=== PATIENT | male | born 1975 | race Caucasian/White ===

== ENCOUNTER 2019-01-19 13:08 | Inpatient (IN) | payer MEDICARE, OTHER ==
[2019-01-19] MEDS: SODIUM CHLORIDE 0.9% 1L BAG IV* (13:33)
[2019-01-19] MEDS: CEFEPIME 2GM/50 ML (PMX) 50 ML IVPB (13:33)
[2019-01-19 13:44] LABS: ADD MAN DIFF? NO; BASOPHILS % 0.2 % (0.0-2.0); HEMATOCRIT 32.6 % (42.0-52.0); HEMOGLOBIN 10.5 g/dl (14.0-18.0); LYMPHOCYTES # 2.3 10^3/ul (0.8-2.9); LYMPHOCYTES % 15.3 % (15.0-51.0); MEAN CORPUSCULAR HEMOGLOBIN 29.1 pg (29.0-33.0); MEAN CORPUSCULAR HGB CONC 32.2 g/dl (32.0-37.0); MEAN CORPUSCULAR VOLUME 90.3 fl (82.0-101.0); MEAN PLATELET VOLUME 8.8 fl (7.4-10.4); MONOCYTE # 0.4 10^3/ul (0.3-0.9); NEUTROPHIL # 12.1 10^3/ul (1.6-7.5); NEUTROPHILS % 80.8 % (39.0-77.0); PLATELET COUNT 402 10^3/UL (140-415); RED BLOOD COUNT 3.61 10^6/ul (4.70-6.10); RED CELL DISTRIBUTION WIDTH 19.1 % (11.5-14.5)
[2019-01-19 13:44] LABS: WHITE BLOOD COUNT 14.9 10^3/ul (4.8-10.8)
[2019-01-19] MEDS: VANCOMYCIN 1 GM (PMX) 250 ML IVPB (13:56)
[2019-01-19 13:59] LABS: ALANINE AMINOTRANSFERASE 12 IU/L (13-69); ALBUMIN 2.9 g/dl (3.3-4.9); ALBUMIN/GLOBULIN RATIO 0.65; ALKALINE PHOSPHATASE 82 IU/L (42-121); AMYLASE 44 U/L (11-123); ANION GAP 7 (5-13); ASPARTATE AMINO TRANSFERASE 20 IU/L (15-46); BILIRUBIN,INDIRECT 0.8 mg/dl (0-1.1); BILIRUBIN,TOTAL 0.8 mg/dl (0.2-1.3); BLOOD UREA NITROGEN 18 mg/dl (7-20); CALCIUM 8.2 mg/dl (8.4-10.2); CARBON DIOXIDE 22 mmol/L (21-31); CHLORIDE 109 mmol/L (97-110); CREATININE 0.52 mg/dl (0.61-1.24); Estimated GFR > 60 mL/min (>60); GLUCOSE 100 mg/dl (70-220); POTASSIUM 3.9 mmol/L (3.5-5.1); SODIUM 138 mmol/L (135-144); TOTAL PROTEIN 7.3 g/dl (6.1-8.1)
[2019-01-19 14:00] LABS: INR 1.27; LIPASE < 10 U/L (23-300); PARTIAL THROMBOPLASTIN TIME 28.3 Sec (23.0-35.0); PT RATIO 1.3
[2019-01-19 14:09] LABS: TROPONIN-I < 0.012 ng/ml (0.000-0.120)
[2019-01-19 14:22] LABS: ADD UMIC YES; UR AMORPHOUS CRYSTAL FEW /HPF (NONE SEEN); UR ASCORBIC ACID 40 mg/dL (NEGATIVE); UR BACTERIA FEW /HPF (NONE SEEN); UR BILIRUBIN (Dip) NEGATIVE (NEGATIVE); UR BLOOD (Dip) NEGATIVE (NEGATIVE); UR CLARITY CLOUDY (CLEAR); UR COLOR AMBER (YELLOW); UR GLUCOSE (Dip) NEGATIVE (NEGATIVE); UR KETONES (Dip) NEGATIVE (NEGATIVE); UR LEUKOCYTE ESTERASE (Dip) 3+ Leu/ul (NEGATIVE); UR MUCUS FEW /HPF (NONE SEEN); UR NITRITE (Dip) NEGATIVE (NEGATIVE); UR RBC 66 /HPF (0-5); UR SPECIFIC GRAVITY (Dip) 1.027 (1.003-1.030); UR SQUAMOUS EPITHELIAL CELL FEW /HPF (FEW); UR TOTAL PROTEIN (Dip) 2+ mg/dl (NEGATIVE); UR UROBILINOGEN (Dip) NEGATIVE (NEGATIVE); UR WBC > 182 /HPF (0-5)
[2019-01-19] MEDS ORDERED: ACETAMINOPHEN 325 MG TAB PO ×2 (14:30)
[2019-01-19] MEDS ORDERED: ACETAMINOPHEN/CODEINE #3 TAB PO (14:30)
[2019-01-19] MEDS ORDERED: NACL 0.9% 3 ML SYG IV (14:30)
[2019-01-19] MEDS ORDERED: ONDANSETRON 4 MG INJ IV ×2 (14:30)
[2019-01-19] MEDS ORDERED: ACETAMINOPHEN 650 MG SUPP PR (15:00)
[2019-01-19 15:47] LABS: LACTIC ACID 1.8 mmol/L (0.5-2.0)
[2019-01-19 17:50] LABS: LACTIC ACID 1.4 mmol/L (0.5-2.0)
[2019-01-19] MEDS: CEFEPIME 1GM/50 ML (PMX) 50 ML IV (20:35)
[2019-01-19] MEDS: SENNA TAB PO ×2 (20:35→20:59)
[2019-01-19] MEDS: DEXTROSE 5%-0.45% NACL 1,000 ML IV (20:35)
[2019-01-19] MEDS: DOCUSATE SODIUM 100 MG CAP PO ×2 (20:36→20:59)
[2019-01-19] MEDS: QUETIAPINE 25 MG TAB PO ×2 (20:36→20:59)
[2019-01-19] MEDS: MIDODRINE 5 MG TAB PO ×2 (20:36→20:59)
[2019-01-19] MEDS: BENZTROPINE 1 MG TAB PO (20:59)
[2019-01-19] MEDS: ALBUTEROL 0.083% (NEB) 2.5 MG/3 ML AMP NEB (21:06)
[2019-01-19] MEDS: LORAZEPAM 2 MG INJ IV (21:16)
[2019-01-19] MEDS: OCTREOTIDE 50 MCG INJ SC (22:07)
[2019-01-20] MEDS: ALBUTEROL/IPRATROPIUM (NEB) 3 ML AMP NEB (00:23)
[2019-01-20 01:00] LABS: AADO2 Arterial 214.1 mmHg (7.0-24.0); Allen Test ACCEPTAB; Arterial Base Excess -3.4 mmol/L (-3.0-3); Arterial Blood Gas Oxygen Sat 95.8 mmHG (95.0-98.0); Arterial COHb 0.2 % (0.0-3.0); Arterial Fraction of Oxyhgb 95.4 % (93.0-99.0); Arterial MetHb 0.2 % (0.0-1.5); Arterial pCO2 40.9 mmhg (35-45); MODE MASK - SIMPLE; Site Right Radial
[2019-01-20] MEDS: LORAZEPAM 2 MG INJ IV ×3 (03:08→20:53)
[2019-01-20 05:49] LABS: ADD MAN DIFF? NO
[2019-01-20 05:50] LABS: WHITE BLOOD COUNT 13.8 10^3/ul (4.8-10.8)
[2019-01-20 05:50] LABS: BASOPHILS % 0.3 % (0.0-2.0); EOSINOPHILS # 0.1 10^3/ul (0.0-0.5); EOSINOPHILS % 0.4 % (0.0-7.0); HEMATOCRIT 31.3 % (42.0-52.0); HEMOGLOBIN 10.1 g/dl (14.0-18.0); LYMPHOCYTES # 1.9 10^3/ul (0.8-2.9); MEAN CORPUSCULAR HEMOGLOBIN 29.4 pg (29.0-33.0); MEAN CORPUSCULAR HGB CONC 32.3 g/dl (32.0-37.0); MEAN CORPUSCULAR VOLUME 91.3 fl (82.0-101.0); MEAN PLATELET VOLUME 8.6 fl (7.4-10.4); MONOCYTE # 0.5 10^3/ul (0.3-0.9); MONOCYTES % 3.6 % (0.0-11.0); NEUTROPHIL # 11.2 10^3/ul (1.6-7.5); NEUTROPHILS % 80.8 % (39.0-77.0); PLATELET COUNT 379 10^3/UL (140-415); RED BLOOD COUNT 3.43 10^6/ul (4.70-6.10); RED CELL DISTRIBUTION WIDTH 18.8 % (11.5-14.5)
[2019-01-20 06:26] LABS: ANION GAP 7 (5-13); BLOOD UREA NITROGEN 15 mg/dl (7-20); CALCIUM 8.6 mg/dl (8.4-10.2); CARBON DIOXIDE 23 mmol/L (21-31); CHLORIDE 108 mmol/L (97-110); CREATININE 0.47 mg/dl (0.61-1.24); Estimated GFR > 60 mL/min (>60); GLUCOSE 70 mg/dl (70-220); MAGNESIUM 1.7 mg/dl (1.7-2.5); POTASSIUM 3.3 mmol/L (3.5-5.1); SODIUM 138 mmol/L (135-144)
[2019-01-20] MEDS: PANTOPRAZOLE 40 MG INJ IV (06:29)
[2019-01-20] MEDS ORDERED: PANTOPRAZOLE (EC) 40 MG TAB PO (07:00)
[2019-01-20 07:42] LABS: AADO2 Arterial 227.5 mmHg (7.0-24.0); Arterial Base Excess -1.9 mmol/L (-3.0-3); Arterial Blood Gas Oxygen Sat 96.3 mmHG (95.0-98.0); Arterial COHb 0.3 % (0.0-3.0); Arterial Fraction of Oxyhgb 95.6 % (93.0-99.0); Arterial HCO3 21.8 mmol/L (22.0-26.0); Arterial MetHb 0.4 % (0.0-1.5); Arterial pCO2 33.5 mmhg (35-45); MODE MASK - SIMPLE; Site Right Brachial
[2019-01-20] MEDS: ALBUTEROL 0.083% (NEB) 2.5 MG/3 ML AMP NEB (07:45)
[2019-01-20] MEDS: CEFEPIME 1GM/50 ML (PMX) 50 ML IV ×2 (08:21→20:52)
[2019-01-20] MEDS: ENOXAPARIN 40 MG/0.4 ML SYG SC (08:32)
[2019-01-20] MEDS: BENZTROPINE 1 MG TAB PO ×2 (08:33→20:54)
[2019-01-20] MEDS: ASCORBIC ACID 500 MG TAB PO (08:34)
[2019-01-20] MEDS: QUETIAPINE 25 MG TAB PO ×2 (08:34→20:56)
[2019-01-20] MEDS: predniSONE 2.5 MG TAB PO (08:34)
[2019-01-20] MEDS: LACTOBACILLUS RHAMNOSUS CAP PO (08:34)
[2019-01-20] MEDS: MIDODRINE 5 MG TAB PO ×3 (08:34→20:54)
[2019-01-20] MEDS: DOCUSATE SODIUM 100 MG CAP PO ×2 (08:34→20:54)
[2019-01-20] MEDS: FOLIC ACID 1 MG TAB PO (08:34)
[2019-01-20] MEDS: MULTIVITAMINS THERAPEUTIC TAB PO (08:34)
[2019-01-20] MEDS: SENNA TAB PO ×2 (08:34→20:55)
[2019-01-20] MEDS: ALBUTEROL/IPRATROPIUM (NEB) 3 ML AMP HHN ×2 (08:53→12:56)
[2019-01-20] MEDS ORDERED: NON-FORMULARY/PATIENT OWN MED (Lactobacillus Acidophilus* (Lactinex*) 1 TAB) PO (09:00)
[2019-01-20] MEDS ORDERED: NON-FORMULARY/PATIENT OWN MED (Multivitamin with Minerals (Multivitamins with Minerals) 1 PO (09:00)
[2019-01-20] MEDS ORDERED: morphine 2 MG INJ IV (09:00)
[2019-01-20] MEDS ORDERED: KETOROLAC 15 MG INJ IV (09:00)
[2019-01-20] MEDS: POTASSIUM CHLORIDE 100 ML IVPB ×2 (10:36→13:37)
[2019-01-20] MEDS: METHYLPREDNISOLONE 40 MG INJ IV ×2 (10:36→21:29)
[2019-01-20] MEDS: PETROLATUM 5 GM OINT TOP (10:36)
[2019-01-20] MEDS ORDERED: VITAMIN A & D 5 GM OINT PACKET TOP (11:00)
[2019-01-20] MEDS: BALSAM PERU/CASTOR OIL 60 GM TUBE TOP (13:37)
[2019-01-20] MEDS ORDERED: PIPER-TAZO 3.375 GM IV (PMX) 100 ML IVPB (15:00)
[2019-01-20] MEDS ORDERED: VANCOMYCIN IV PER PHARMACY XX (15:00)
[2019-01-20] MEDS: COLLAGENASE 5 GM (UD JAR) TOP (17:06)
[2019-01-20] MEDS: VANCOMYCIN 1 GM 250 ML IVPB (17:07)
[2019-01-20] MEDS: LEVALBUTEROL (NEB) 0.63 MG/3 ML AMP HHN (19:48)
[2019-01-20] MEDS: OCTREOTIDE 50 MCG INJ SC (23:03)
[2019-01-21] MEDS: VANCOMYCIN 750 MG (PMX) 250 ML IVPB (05:00)
[2019-01-21] MEDS: PANTOPRAZOLE 40 MG INJ IV (05:43)
[2019-01-21] MEDS: METHYLPREDNISOLONE 40 MG INJ IV ×3 (05:43→22:04)
[2019-01-21 06:07] LABS: ADD MAN DIFF? NO
[2019-01-21 06:11] LABS: WHITE BLOOD COUNT 9.1 10^3/ul (4.8-10.8)
[2019-01-21 06:11] LABS: BASOPHILS % 0.1 % (0.0-2.0); HEMATOCRIT 32.8 % (42.0-52.0); HEMOGLOBIN 10.8 g/dl (14.0-18.0); LYMPHOCYTES # 1.2 10^3/ul (0.8-2.9); LYMPHOCYTES % 13.6 % (15.0-51.0); MEAN CORPUSCULAR HEMOGLOBIN 29.4 pg (29.0-33.0); MEAN CORPUSCULAR HGB CONC 32.9 g/dl (32.0-37.0); MEAN CORPUSCULAR VOLUME 89.4 fl (82.0-101.0); MEAN PLATELET VOLUME 9.2 fl (7.4-10.4); MONOCYTE # 0.1 10^3/ul (0.3-0.9); MONOCYTES % 1.3 % (0.0-11.0); NEUTROPHIL # 7.6 10^3/ul (1.6-7.5); NEUTROPHILS % 83.8 % (39.0-77.0); PLATELET COUNT 446 10^3/UL (140-415); RED BLOOD COUNT 3.67 10^6/ul (4.70-6.10)
[2019-01-21 06:38] LABS: ALBUMIN 2.8 g/dl (3.3-4.9); ANION GAP 8 (5-13); BLOOD UREA NITROGEN 25 mg/dl (7-20); CALCIUM 9.5 mg/dl (8.4-10.2); CARBON DIOXIDE 25 mmol/L (21-31); CHLORIDE 108 mmol/L (97-110); CREATININE 0.48 mg/dl (0.61-1.24); GLUCOSE 158 mg/dl (70-220); MAGNESIUM 1.9 mg/dl (1.7-2.5); PHOSPHORUS 4.2 mg/dl (2.5-4.9); POTASSIUM 4.4 mmol/L (3.5-5.1); SODIUM 141 mmol/L (135-144)
[2019-01-21] MEDS: LEVALBUTEROL (NEB) 0.63 MG/3 ML AMP HHN ×3 (07:35→19:25)
[2019-01-21] MEDS: DOCUSATE SODIUM 100 MG CAP PO ×2 (08:23→21:00)
[2019-01-21] MEDS: FOLIC ACID 1 MG TAB PO (08:23)
[2019-01-21] MEDS: BENZTROPINE 1 MG TAB PO ×2 (08:23→21:00)
[2019-01-21] MEDS: QUETIAPINE 25 MG TAB PO ×2 (08:23→21:00)
[2019-01-21] MEDS: ASCORBIC ACID 500 MG TAB PO (08:23)
[2019-01-21] MEDS: SENNA TAB PO ×2 (08:23→21:00)
[2019-01-21] MEDS: LACTOBACILLUS RHAMNOSUS CAP PO (08:23)
[2019-01-21] MEDS: MIDODRINE 5 MG TAB PO ×3 (08:23→21:00)
[2019-01-21] MEDS: MULTIVITAMINS THERAPEUTIC TAB PO (08:23)
[2019-01-21] MEDS: BALSAM PERU/CASTOR OIL 60 GM TUBE TOP (08:58)
[2019-01-21] MEDS: CEFEPIME 1GM/50 ML (PMX) 50 ML IV ×2 (08:58→22:04)
[2019-01-21] MEDS: COLLAGENASE 5 GM (UD JAR) TOP (08:58)
[2019-01-21] MEDS: ENOXAPARIN 40 MG/0.4 ML SYG SC (09:32)
[2019-01-21] MEDS: DEXTROSE 5%-0.45% NACL 1,000 ML IV (11:57)
[2019-01-21] MEDS: OCTREOTIDE 50 MCG INJ SC (22:04)
[2019-01-22] MEDS: DEXTROSE 5%-0.45% NACL 1,000 ML IV (00:05)
[2019-01-22 05:58] LABS: ADD MAN DIFF? NO
[2019-01-22 06:05] LABS: WHITE BLOOD COUNT 5.8 10^3/ul (4.8-10.8)
[2019-01-22 06:05] LABS: BASOPHILS % 0.2 % (0.0-2.0); HEMATOCRIT 36.6 % (42.0-52.0); HEMOGLOBIN 11.5 g/dl (14.0-18.0); LYMPHOCYTES # 1.2 10^3/ul (0.8-2.9); LYMPHOCYTES % 20.3 % (15.0-51.0); MEAN CORPUSCULAR HEMOGLOBIN 28.9 pg (29.0-33.0); MEAN CORPUSCULAR HGB CONC 31.4 g/dl (32.0-37.0); MEAN PLATELET VOLUME 9.1 fl (7.4-10.4); MONOCYTE # 0.2 10^3/ul (0.3-0.9); NEUTROPHIL # 4.3 10^3/ul (1.6-7.5); NEUTROPHILS % 74.8 % (39.0-77.0); PLATELET COUNT 438 10^3/UL (140-415); RED BLOOD COUNT 3.98 10^6/ul (4.70-6.10); RED CELL DISTRIBUTION WIDTH 17.8 % (11.5-14.5)
[2019-01-22 06:44] LABS: ALBUMIN 2.9 g/dl (3.3-4.9); ANION GAP 4 (5-13); BLOOD UREA NITROGEN 28 mg/dl (7-20); CALCIUM 9.4 mg/dl (8.4-10.2); CARBON DIOXIDE 29 mmol/L (21-31); CHLORIDE 106 mmol/L (97-110); CREATININE 0.57 mg/dl (0.61-1.24); GLUCOSE 162 mg/dl (70-220); MAGNESIUM 2.1 mg/dl (1.7-2.5); PHOSPHORUS 3.5 mg/dl (2.5-4.9); POTASSIUM 4.9 mmol/L (3.5-5.1); SODIUM 139 mmol/L (135-144)
[2019-01-22] MEDS: LEVALBUTEROL (NEB) 0.63 MG/3 ML AMP HHN ×3 (08:36→21:20)
[2019-01-22] MEDS: ALBUTEROL/IPRATROPIUM (NEB) 3 ML AMP NEB (08:37)
[2019-01-22] MEDS: ASCORBIC ACID 500 MG TAB PO (09:00)
[2019-01-22] MEDS: MULTIVITAMINS THERAPEUTIC TAB PO (09:00)
[2019-01-22] MEDS: MIDODRINE 5 MG TAB PO ×3 (09:00→20:02)
[2019-01-22] MEDS: COLLAGENASE 5 GM (UD JAR) TOP (09:00)
[2019-01-22] MEDS: QUETIAPINE 25 MG TAB PO ×2 (09:00→20:02)
[2019-01-22] MEDS: LACTOBACILLUS RHAMNOSUS CAP PO (09:00)
[2019-01-22] MEDS: FOLIC ACID 1 MG TAB PO (09:00)
[2019-01-22] MEDS: SENNA TAB PO ×2 (09:00→20:02)
[2019-01-22] MEDS: BENZTROPINE 1 MG TAB PO ×2 (09:00→20:01)
[2019-01-22] MEDS: DOCUSATE SODIUM 100 MG CAP PO ×2 (09:00→20:02)
[2019-01-22] MEDS: BALSAM PERU/CASTOR OIL 60 GM TUBE TOP ×2 (09:19→20:05)
[2019-01-22] MEDS: ENOXAPARIN 40 MG/0.4 ML SYG SC (10:22)
[2019-01-22] MEDS: PANTOPRAZOLE 40 MG INJ IV (11:01)
[2019-01-22] MEDS: METHYLPREDNISOLONE 40 MG INJ IV ×3 (11:01→21:46)
[2019-01-22] MEDS: CEFEPIME 1GM/50 ML (PMX) 50 ML IV ×2 (11:01→20:06)
[2019-01-22] MEDS: OCTREOTIDE 50 MCG INJ SC (20:06)
[2019-01-23] MEDS: DEXTROSE 5%-0.45% NACL 1,000 ML IV ×2 (04:00→11:04)
[2019-01-23] MEDS: PANTOPRAZOLE 40 MG INJ IV (05:18)
[2019-01-23] MEDS: METHYLPREDNISOLONE 40 MG INJ IV ×2 (05:18→20:24)
[2019-01-23 05:31] LABS: ADD MAN DIFF? NO
[2019-01-23 05:33] LABS: BASOPHILS % 0.2 % (0.0-2.0); HEMATOCRIT 34.9 % (42.0-52.0); HEMOGLOBIN 11.3 g/dl (14.0-18.0); LYMPHOCYTES # 1.2 10^3/ul (0.8-2.9); LYMPHOCYTES % 23.5 % (15.0-51.0); MEAN CORPUSCULAR HEMOGLOBIN 29.6 pg (29.0-33.0); MEAN CORPUSCULAR HGB CONC 32.4 g/dl (32.0-37.0); MEAN CORPUSCULAR VOLUME 91.4 fl (82.0-101.0); MEAN PLATELET VOLUME 9.5 fl (7.4-10.4); MONOCYTE # 0.3 10^3/ul (0.3-0.9); MONOCYTES % 5.6 % (0.0-11.0); NEUTROPHIL # 3.5 10^3/ul (1.6-7.5); NEUTROPHILS % 68.7 % (39.0-77.0); PLATELET COUNT 400 10^3/UL (140-415); RED BLOOD COUNT 3.82 10^6/ul (4.70-6.10); RED CELL DISTRIBUTION WIDTH 17.5 % (11.5-14.5)
[2019-01-23 06:20] LABS: ALBUMIN 2.6 g/dl (3.3-4.9); ANION GAP 5 (5-13); BLOOD UREA NITROGEN 27 mg/dl (7-20); CALCIUM 9.1 mg/dl (8.4-10.2); CARBON DIOXIDE 28 mmol/L (21-31); CHLORIDE 106 mmol/L (97-110); CREATININE 0.51 mg/dl (0.61-1.24); GLUCOSE 159 mg/dl (70-220); MAGNESIUM 2.1 mg/dl (1.7-2.5); PHOSPHORUS 3.3 mg/dl (2.5-4.9); POTASSIUM 4.2 mmol/L (3.5-5.1); SODIUM 139 mmol/L (135-144)
[2019-01-23] MEDS: LEVALBUTEROL (NEB) 0.63 MG/3 ML AMP HHN ×3 (07:53→20:39)
[2019-01-23] MEDS: CEFEPIME 1GM/50 ML (PMX) 50 ML IV ×2 (08:55→20:24)
[2019-01-23] MEDS: DOCUSATE SODIUM 100 MG CAP PO ×2 (08:56→20:25)
[2019-01-23] MEDS: LACTOBACILLUS RHAMNOSUS CAP PO (08:56)
[2019-01-23] MEDS: MIDODRINE 5 MG TAB PO ×3 (08:57→21:00)
[2019-01-23] MEDS: MULTIVITAMINS THERAPEUTIC TAB PO (08:57)
[2019-01-23] MEDS: FOLIC ACID 1 MG TAB PO (08:57)
[2019-01-23] MEDS: ASCORBIC ACID 500 MG TAB PO (08:57)
[2019-01-23] MEDS: SENNA TAB PO ×2 (08:57→20:25)
[2019-01-23] MEDS: QUETIAPINE 25 MG TAB PO ×2 (08:57→20:25)
[2019-01-23] MEDS: BENZTROPINE 1 MG TAB PO ×2 (09:00→20:25)
[2019-01-23] MEDS: ENOXAPARIN 40 MG/0.4 ML SYG SC (09:01)
[2019-01-23] MEDS ORDERED: VANCOMYCIN IV PER PHARMACY XX (11:00)
[2019-01-23] MEDS: BALSAM PERU/CASTOR OIL 60 GM TUBE TOP ×3 (11:06→20:26)
[2019-01-23] MEDS: COLLAGENASE 5 GM (UD JAR) TOP (11:06)
[2019-01-23] MEDS: VANCOMYCIN 1 GM 250 ML IVPB (13:41)
[2019-01-23] MEDS: OCTREOTIDE 50 MCG INJ SC (22:04)
[2019-01-24] MEDS: VANCOMYCIN 750 MG (PMX) 250 ML IVPB ×2 (00:35→12:47)
[2019-01-24] MEDS: PANTOPRAZOLE 40 MG INJ IV (05:07)
[2019-01-24 06:27] LABS: ADD MAN DIFF? NO
[2019-01-24 06:34] LABS: WHITE BLOOD COUNT 6.5 10^3/ul (4.8-10.8)
[2019-01-24 06:34] LABS: BASOPHILS % 0.3 % (0.0-2.0); HEMATOCRIT 34.1 % (42.0-52.0); HEMOGLOBIN 11.1 g/dl (14.0-18.0); LYMPHOCYTES # 1.5 10^3/ul (0.8-2.9); LYMPHOCYTES % 23.6 % (15.0-51.0); MEAN CORPUSCULAR HEMOGLOBIN 29.5 pg (29.0-33.0); MEAN CORPUSCULAR HGB CONC 32.6 g/dl (32.0-37.0); MEAN CORPUSCULAR VOLUME 90.7 fl (82.0-101.0); MEAN PLATELET VOLUME 10.5 fl (7.4-10.4); MONOCYTE # 0.4 10^3/ul (0.3-0.9); MONOCYTES % 6.2 % (0.0-11.0); NEUTROPHIL # 4.4 10^3/ul (1.6-7.5); NEUTROPHILS % 67.4 % (39.0-77.0); PLATELET COUNT 352 10^3/UL (140-415); RED BLOOD COUNT 3.76 10^6/ul (4.70-6.10); RED CELL DISTRIBUTION WIDTH 17.2 % (11.5-14.5)
[2019-01-24 07:07] LABS: ANION GAP 5 (5-13); BLOOD UREA NITROGEN 23 mg/dl (7-20); CALCIUM 8.4 mg/dl (8.4-10.2); CARBON DIOXIDE 28 mmol/L (21-31); CHLORIDE 104 mmol/L (97-110); CREATININE 0.33 mg/dl (0.61-1.24); Estimated GFR > 60 mL/min (>60); GLUCOSE 126 mg/dl (70-220); MAGNESIUM 1.9 mg/dl (1.7-2.5); PHOSPHORUS 3.1 mg/dl (2.5-4.9); SODIUM 137 mmol/L (135-144)
[2019-01-24] MEDS: LEVALBUTEROL (NEB) 0.63 MG/3 ML AMP HHN ×3 (07:50→20:51)
[2019-01-24] MEDS: MULTIVITAMINS THERAPEUTIC TAB PO (09:00)
[2019-01-24] MEDS: FOLIC ACID 1 MG TAB PO (09:00)
[2019-01-24] MEDS: DOCUSATE SODIUM 100 MG CAP PO ×2 (09:00→21:00)
[2019-01-24] MEDS: QUETIAPINE 25 MG TAB PO ×2 (09:00→21:00)
[2019-01-24] MEDS: COLLAGENASE 5 GM (UD JAR) TOP (09:00)
[2019-01-24] MEDS: SENNA TAB PO ×2 (09:00→21:00)
[2019-01-24] MEDS: MIDODRINE 5 MG TAB PO ×3 (09:00→21:00)
[2019-01-24] MEDS: ASCORBIC ACID 500 MG TAB PO (09:00)
[2019-01-24] MEDS: LACTOBACILLUS RHAMNOSUS CAP PO (09:00)
[2019-01-24] MEDS: BENZTROPINE 1 MG TAB PO ×2 (09:00→21:00)
[2019-01-24] MEDS: METHYLPREDNISOLONE 40 MG INJ IV ×2 (09:53→21:39)
[2019-01-24] MEDS: CEFEPIME 1GM/50 ML (PMX) 50 ML IV ×2 (09:54→21:36)
[2019-01-24] MEDS: BALSAM PERU/CASTOR OIL 60 GM TUBE TOP ×3 (09:54→21:40)
[2019-01-24] MEDS: ENOXAPARIN 40 MG/0.4 ML SYG SC (10:00)
[2019-01-24] MEDS: DEXTROSE 5%-0.45% NACL 1,000 ML IV ×2 (14:49→20:00)
[2019-01-24] MEDS: OCTREOTIDE 50 MCG INJ SC (21:39)
[2019-01-25 01:30] LABS: VANCOMYCIN,TROUGH 8.4 ug/ml (10.0-20.0)
[2019-01-25] MEDS: VANCOMYCIN 1 GM (PMX) 250 ML IVPB ×2 (01:58→14:07)
[2019-01-25] MEDS: PANTOPRAZOLE 40 MG INJ IV (05:52)
[2019-01-25 05:59] LABS: ADD MAN DIFF? NO
[2019-01-25 06:08] LABS: WHITE BLOOD COUNT 7.4 10^3/ul (4.8-10.8)
[2019-01-25 06:08] LABS: BASOPHILS % 0.1 % (0.0-2.0); HEMATOCRIT 37.3 % (42.0-52.0); HEMOGLOBIN 12.2 g/dl (14.0-18.0); LYMPHOCYTES # 2.1 10^3/ul (0.8-2.9); LYMPHOCYTES % 28.9 % (15.0-51.0); MEAN CORPUSCULAR HGB CONC 32.7 g/dl (32.0-37.0); MEAN CORPUSCULAR VOLUME 88.8 fl (82.0-101.0); MEAN PLATELET VOLUME 9.6 fl (7.4-10.4); MONOCYTE # 0.5 10^3/ul (0.3-0.9); MONOCYTES % 7.2 % (0.0-11.0); NEUTROPHIL # 4.4 10^3/ul (1.6-7.5); NEUTROPHILS % 59.2 % (39.0-77.0); PLATELET COUNT 436 10^3/UL (140-415)
[2019-01-25 07:01] LABS: ANION GAP 3 (5-13); BLOOD UREA NITROGEN 13 mg/dl (7-20); CALCIUM 8.5 mg/dl (8.4-10.2); CARBON DIOXIDE 31 mmol/L (21-31); CHLORIDE 98 mmol/L (97-110); CREATININE 0.34 mg/dl (0.61-1.24); Estimated GFR > 60 mL/min (>60); GLUCOSE 110 mg/dl (70-220); MAGNESIUM 1.8 mg/dl (1.7-2.5); PHOSPHORUS 3.1 mg/dl (2.5-4.9); SODIUM 132 mmol/L (135-144)
[2019-01-25] MEDS: LEVALBUTEROL (NEB) 0.63 MG/3 ML AMP HHN ×3 (08:43→19:46)
[2019-01-25] MEDS: DOCUSATE SODIUM 100 MG CAP PO ×2 (09:00→20:14)
[2019-01-25] MEDS: SENNA TAB PO ×2 (09:00→20:14)
[2019-01-25] MEDS: MULTIVITAMINS THERAPEUTIC TAB PO (09:00)
[2019-01-25] MEDS: COLLAGENASE 5 GM (UD JAR) TOP (09:00)
[2019-01-25] MEDS: QUETIAPINE 25 MG TAB PO ×2 (09:00→20:14)
[2019-01-25] MEDS: BENZTROPINE 1 MG TAB PO ×2 (09:00→20:13)
[2019-01-25] MEDS: MIDODRINE 5 MG TAB PO ×3 (09:00→20:14)
[2019-01-25] MEDS: FOLIC ACID 1 MG TAB PO (09:00)
[2019-01-25] MEDS: ASCORBIC ACID 500 MG TAB PO (09:00)
[2019-01-25] MEDS: LACTOBACILLUS RHAMNOSUS CAP PO (09:00)
[2019-01-25] MEDS: CEFEPIME 1GM/50 ML (PMX) 50 ML IV ×2 (09:46→20:16)
[2019-01-25] MEDS: METHYLPREDNISOLONE 40 MG INJ IV (09:48)
[2019-01-25] MEDS: BALSAM PERU/CASTOR OIL 60 GM TUBE TOP ×3 (09:49→20:16)
[2019-01-25] MEDS: ENOXAPARIN 40 MG/0.4 ML SYG SC (09:58)
[2019-01-25 13:04] LABS: ALANINE AMINOTRANSFERASE 14 IU/L (13-69); ALBUMIN 2.9 g/dl (3.3-4.9); ALBUMIN/GLOBULIN RATIO 0.69; ALKALINE PHOSPHATASE 79 IU/L (42-121); ANION GAP 6 (5-13); ASPARTATE AMINO TRANSFERASE 20 IU/L (15-46); BILIRUBIN,INDIRECT 0.7 mg/dl (0-1.1); BILIRUBIN,TOTAL 0.7 mg/dl (0.2-1.3); BLOOD UREA NITROGEN 12 mg/dl (7-20); CALCIUM 8.7 mg/dl (8.4-10.2); CARBON DIOXIDE 32 mmol/L (21-31); CHLORIDE 96 mmol/L (97-110); Estimated GFR > 60 mL/min (>60); GLUCOSE 103 mg/dl (70-220); MAGNESIUM 1.8 mg/dl (1.7-2.5); POTASSIUM 3.8 mmol/L (3.5-5.1); SODIUM 134 mmol/L (135-144); TOTAL PROTEIN 7.1 g/dl (6.1-8.1); TRIGLYCERIDES 195 mg/dl (0-149)
[2019-01-25 13:06] LABS: HEMOGLOBIN A1C 5.2 % (0-5.9)
[2019-01-25 13:23] LABS: PLATELET COUNT 420 10^3/UL (140-415)
[2019-01-25 13:26] LABS: PREALBUMIN 15.9 mg/dl (17.6-36.0)
[2019-01-25 13:52] LABS: INR 1.16; PROTIME 14.9 Sec (11.9-14.9); PT RATIO 1.2
[2019-01-25 13:53] LABS: PARTIAL THROMBOPLASTIN TIME 31.5 Sec (23.0-35.0)
[2019-01-25 14:08] LABS: THROMBIN TIME 26.7 SEC (13.8-19.1)
[2019-01-25] MEDS: DEXTROSE 5%-0.45% NACL 1,000 ML IV (16:00)
[2019-01-25] MEDS: ACCU-CHEK XX ×2 (17:16→20:16)
[2019-01-25] MEDS: TPN 1,000 ML IV (17:54)
[2019-01-25] MEDS: OCTREOTIDE 50 MCG INJ SC (20:56)
[2019-01-26] MEDS: ACCU-CHEK XX ×6 (01:26→20:34)
[2019-01-26] MEDS: VANCOMYCIN 1 GM (PMX) 250 ML IVPB ×2 (02:42→13:56)
[2019-01-26] MEDS: LORAZEPAM 2 MG INJ IV ×3 (04:29→15:56)
[2019-01-26 05:32] LABS: ADD MAN DIFF? NO
[2019-01-26] MEDS: PANTOPRAZOLE 40 MG INJ IV (05:37)
[2019-01-26 05:43] LABS: BASOPHIL # 0.1 10^3/ul (0.0-0.1); BASOPHILS % 0.7 % (0.0-2.0); EOSINOPHILS % 0.5 % (0.0-7.0); HEMATOCRIT 36.6 % (42.0-52.0); HEMOGLOBIN 12.2 g/dl (14.0-18.0); LYMPHOCYTES # 2.4 10^3/ul (0.8-2.9); LYMPHOCYTES % 32.6 % (15.0-51.0); MEAN CORPUSCULAR HEMOGLOBIN 29.3 pg (29.0-33.0); MEAN CORPUSCULAR HGB CONC 33.3 g/dl (32.0-37.0); MEAN CORPUSCULAR VOLUME 87.8 fl (82.0-101.0); MEAN PLATELET VOLUME 9.8 fl (7.4-10.4); MONOCYTE # 0.6 10^3/ul (0.3-0.9); MONOCYTES % 8.6 % (0.0-11.0); NEUTROPHIL # 3.9 10^3/ul (1.6-7.5); NEUTROPHILS % 52.6 % (39.0-77.0); PLATELET COUNT 468 10^3/UL (140-415); RED BLOOD COUNT 4.17 10^6/ul (4.70-6.10); RED CELL DISTRIBUTION WIDTH 17.2 % (11.5-14.5)
[2019-01-26 05:43] LABS: WHITE BLOOD COUNT 7.5 10^3/ul (4.8-10.8)
[2019-01-26 06:09] LABS: ANION GAP 5 (5-13); BLOOD UREA NITROGEN 13 mg/dl (7-20); CALCIUM 8.4 mg/dl (8.4-10.2); CARBON DIOXIDE 32 mmol/L (21-31); CHLORIDE 98 mmol/L (97-110); CREATININE 0.41 mg/dl (0.61-1.24); Estimated GFR > 60 mL/min (>60); GLUCOSE 85 mg/dl (70-220); MAGNESIUM 1.9 mg/dl (1.7-2.5); PHOSPHORUS 2.9 mg/dl (2.5-4.9); POTASSIUM 3.7 mmol/L (3.5-5.1); SODIUM 135 mmol/L (135-144)
[2019-01-26] MEDS: LEVALBUTEROL (NEB) 0.63 MG/3 ML AMP HHN ×3 (07:53→20:06)
[2019-01-26] MEDS: BENZTROPINE 1 MG TAB PO ×2 (08:06→20:37)
[2019-01-26] MEDS: DOCUSATE SODIUM 100 MG CAP PO ×2 (08:06→20:37)
[2019-01-26] MEDS: LACTOBACILLUS RHAMNOSUS CAP PO (08:06)
[2019-01-26] MEDS: SENNA TAB PO ×2 (08:06→20:38)
[2019-01-26] MEDS: MIDODRINE 5 MG TAB PO ×3 (08:06→20:37)
[2019-01-26] MEDS: MULTIVITAMINS THERAPEUTIC TAB PO (08:06)
[2019-01-26] MEDS: ASCORBIC ACID 500 MG TAB PO (08:06)
[2019-01-26] MEDS: FOLIC ACID 1 MG TAB PO (08:06)
[2019-01-26] MEDS: QUETIAPINE 25 MG TAB PO ×2 (08:06→20:38)
[2019-01-26] MEDS: COLLAGENASE 5 GM (UD JAR) TOP (08:27)
[2019-01-26] MEDS: METHYLPREDNISOLONE 40 MG INJ IV (08:27)
[2019-01-26] MEDS: CEFEPIME 1GM/50 ML (PMX) 50 ML IV ×2 (08:27→20:27)
[2019-01-26] MEDS: BALSAM PERU/CASTOR OIL 60 GM TUBE TOP ×3 (08:28→20:30)
[2019-01-26] MEDS: ENOXAPARIN 40 MG/0.4 ML SYG SC (08:32)
[2019-01-26] MEDS: TPN 1,000 ML IV (10:52)
[2019-01-26 13:44] LABS: VANCOMYCIN,TROUGH 11.6 ug/ml (10.0-20.0)
[2019-01-26] MEDS: OCTREOTIDE 50 MCG INJ SC (20:33)
[2019-01-27] MEDS: LORAZEPAM 2 MG INJ IV (00:25)
[2019-01-27] MEDS: ACCU-CHEK XX ×6 (01:30→21:34)
[2019-01-27] MEDS: VANCOMYCIN 1 GM (PMX) 250 ML IVPB ×2 (01:42→13:35)
[2019-01-27 05:47] LABS: ADD MAN DIFF? NO
[2019-01-27] MEDS: TPN 1,000 ML IV (05:49)
[2019-01-27] MEDS: PANTOPRAZOLE 40 MG INJ IV (05:49)
[2019-01-27 05:54] LABS: ABNORMAL IP MESSAGE 1; BASOPHILS % 0.2 % (0.0-2.0); EOSINOPHILS # 0.1 10^3/ul (0.0-0.5); HEMATOCRIT 37.6 % (42.0-52.0); HEMOGLOBIN 12.3 g/dl (14.0-18.0); LYMPHOCYTES # 3.1 10^3/ul (0.8-2.9); LYMPHOCYTES % 37.9 % (15.0-51.0); MEAN CORPUSCULAR HEMOGLOBIN 29.4 pg (29.0-33.0); MEAN CORPUSCULAR HGB CONC 32.7 g/dl (32.0-37.0); MEAN CORPUSCULAR VOLUME 89.7 fl (82.0-101.0); MEAN PLATELET VOLUME 9.6 fl (7.4-10.4); MONOCYTE # 0.6 10^3/ul (0.3-0.9); MONOCYTES % 7.6 % (0.0-11.0); NEUTROPHIL # 3.8 10^3/ul (1.6-7.5); NEUTROPHILS % 47.4 % (39.0-77.0); PLATELET COUNT 443 10^3/UL (140-415); POSITIVE DIFF @See below; RED BLOOD COUNT 4.19 10^6/ul (4.70-6.10); RED CELL DISTRIBUTION WIDTH 17.7 % (11.5-14.5)
[2019-01-27 05:54] LABS: WHITE BLOOD COUNT 8.1 10^3/ul (4.8-10.8)
[2019-01-27 06:35] LABS: ANION GAP 6 (5-13); BLOOD UREA NITROGEN 14 mg/dl (7-20); CALCIUM 8.4 mg/dl (8.4-10.2); CARBON DIOXIDE 29 mmol/L (21-31); CHLORIDE 101 mmol/L (97-110); CREATININE 0.29 mg/dl (0.61-1.24); Estimated GFR > 60 mL/min (>60); GLUCOSE 98 mg/dl (70-220); PHOSPHORUS 2.8 mg/dl (2.5-4.9); POTASSIUM 4.2 mmol/L (3.5-5.1); SODIUM 136 mmol/L (135-144)
[2019-01-27 07:22] LABS: ANISOCYTOSIS 1+ (0-0); BAND NEUTROPHILS #M 0.3 10^3/ul (0.0-0.6); BAND NEUTROPHILS % (M) 4 % (0-4); EOSINOPHILS % (M) 2 % (0-7); GIANT THROMBO% (M) 2 % (0-0); LYMPHOCYTES #M 2.3 10^3/ul (0.8-2.9); LYMPHOCYTES % (M) 29 % (15-51); MONOCYTE #M 0.5 10^3/ul (0.3-0.9); MONOCYTES % (M) 7 % (0-11); MYELOCYTES % (M) 1 % (0-0); PLATELET ESTIMATE NORMAL; REACTIVE LYMPHOCYTES #M 0.4 10^3/ul (0.0-0.0); REACTIVE LYMPHOCYTES% (M) 6 % (0-0); SEG NEUT #M 4.2 10^3/ul (1.6-7.5); SEGMENTED NEUTROPHILS (M) % 51 % (39-77); SMUDGE%M 28 % (0-0); SPHEROCYTES 1+ (0-0)
[2019-01-27] MEDS: LEVALBUTEROL (NEB) 0.63 MG/3 ML AMP HHN ×3 (08:00→19:27)
[2019-01-27] MEDS: FOLIC ACID 1 MG TAB PO (08:01)
[2019-01-27] MEDS: LACTOBACILLUS RHAMNOSUS CAP PO (08:01)
[2019-01-27] MEDS: DOCUSATE SODIUM 100 MG CAP PO ×2 (08:01→21:00)
[2019-01-27] MEDS: BENZTROPINE 1 MG TAB PO ×2 (08:01→21:33)
[2019-01-27] MEDS: SENNA TAB PO ×2 (08:02→21:33)
[2019-01-27] MEDS: QUETIAPINE 25 MG TAB PO ×2 (08:02→21:33)
[2019-01-27] MEDS: MULTIVITAMINS THERAPEUTIC TAB PO (08:02)
[2019-01-27] MEDS: MIDODRINE 5 MG TAB PO ×3 (08:02→21:33)
[2019-01-27] MEDS: ASCORBIC ACID 500 MG TAB PO (08:02)
[2019-01-27] MEDS: COLLAGENASE 5 GM (UD JAR) TOP (08:30)
[2019-01-27] MEDS: CEFEPIME 1GM/50 ML (PMX) 50 ML IV ×2 (08:30→21:26)
[2019-01-27] MEDS: METHYLPREDNISOLONE 40 MG INJ IV ×2 (08:30→12:13)
[2019-01-27] MEDS: BALSAM PERU/CASTOR OIL 60 GM TUBE TOP ×3 (08:30→21:34)
[2019-01-27] MEDS: ENOXAPARIN 40 MG/0.4 ML SYG SC (08:34)
[2019-01-27] MEDS: SOD CHLORIDE 0.9% 1,000 ML IV (12:13)
[2019-01-27] MEDS ORDERED: EPHEDrine 25 MG/5 ML SYG IV (15:00)
[2019-01-27] MEDS ORDERED: MIDAZOLAM 1 MG/ML 2 ML INJ IV (15:00)
[2019-01-27] MEDS ORDERED: LABETALOL HCL 20MG INJ IV (15:00)
[2019-01-27] MEDS ORDERED: hydrALAzine 20 MG INJ IV (15:00)
[2019-01-27] MEDS ORDERED: ONDANSETRON 4 MG INJ IV (15:00)
[2019-01-27] MEDS ORDERED: FENTAnyl 50 MCG/ML VIAL IV (15:00)
[2019-01-27] MEDS ORDERED: DIPHENHYDRAMINE 50 MG INJ IV (15:00)
[2019-01-27] MEDS: OCTREOTIDE 50 MCG INJ SC (21:44)
[2019-01-28] MEDS: TPN 1,000 ML IV (00:06)
[2019-01-28] MEDS: ACCU-CHEK XX ×3 (01:29→09:00)
[2019-01-28] MEDS: VANCOMYCIN 1 GM (PMX) 250 ML IVPB ×2 (02:27→13:31)
[2019-01-28] MEDS: PANTOPRAZOLE 40 MG INJ IV (05:31)
[2019-01-28 06:15] LABS: WHITE BLOOD COUNT 10.5 10^3/ul (4.8-10.8)
[2019-01-28 06:15] LABS: ABNORMAL IP MESSAGE 1; HEMATOCRIT 36.5 % (42.0-52.0); HEMOGLOBIN 11.7 g/dl (14.0-18.0); MEAN CORPUSCULAR HEMOGLOBIN 29.3 pg (29.0-33.0); MEAN CORPUSCULAR HGB CONC 32.1 g/dl (32.0-37.0); MEAN CORPUSCULAR VOLUME 91.3 fl (82.0-101.0); MEAN PLATELET VOLUME 9.9 fl (7.4-10.4); PLATELET COUNT 439 10^3/UL (140-415); POSITIVE DIFF @See below; RED CELL DISTRIBUTION WIDTH 17.9 % (11.5-14.5)
[2019-01-28 06:24] LABS: ADD MAN DIFF? YES
[2019-01-28 07:18] LABS: ANION GAP 4 (5-13); BLOOD UREA NITROGEN 16 mg/dl (7-20); CALCIUM 8.3 mg/dl (8.4-10.2); CARBON DIOXIDE 30 mmol/L (21-31); CHLORIDE 102 mmol/L (97-110); CREATININE 0.31 mg/dl (0.61-1.24); Estimated GFR > 60 mL/min (>60); GLUCOSE 86 mg/dl (70-220); MAGNESIUM 2.1 mg/dl (1.7-2.5); PHOSPHORUS 3.1 mg/dl (2.5-4.9); POTASSIUM 4.3 mmol/L (3.5-5.1); SODIUM 136 mmol/L (135-144)
[2019-01-28] MEDS: LEVALBUTEROL (NEB) 0.63 MG/3 ML AMP HHN ×3 (08:49→20:08)
[2019-01-28] MEDS: SENNA TAB PO ×2 (09:42→20:38)
[2019-01-28] MEDS: DOCUSATE SODIUM 100 MG CAP PO ×2 (09:42→20:38)
[2019-01-28] MEDS: ASCORBIC ACID 500 MG TAB PO (09:43)
[2019-01-28] MEDS: MULTIVITAMINS THERAPEUTIC TAB PO (09:43)
[2019-01-28] MEDS: BENZTROPINE 1 MG TAB PO ×2 (09:43→20:38)
[2019-01-28] MEDS: MIDODRINE 5 MG TAB PO ×3 (09:43→20:39)
[2019-01-28] MEDS: FOLIC ACID 1 MG TAB PO (09:43)
[2019-01-28] MEDS: LACTOBACILLUS RHAMNOSUS CAP PO (09:44)
[2019-01-28] MEDS: METHYLPREDNISOLONE 40 MG INJ IV (09:44)
[2019-01-28] MEDS: COLLAGENASE 5 GM (UD JAR) TOP (09:44)
[2019-01-28] MEDS: QUETIAPINE 25 MG TAB PO ×2 (09:46→20:38)
[2019-01-28] MEDS: CEFEPIME 1GM/50 ML (PMX) 50 ML IV (09:57)
[2019-01-28] MEDS: BALSAM PERU/CASTOR OIL 60 GM TUBE TOP ×3 (10:02→20:51)
[2019-01-28] MEDS: ENOXAPARIN 40 MG/0.4 ML SYG SC (10:05)
[2019-01-28 11:01] LABS: ANISOCYTOSIS 1+ (0-0); BAND NEUTROPHILS #M 0.4 10^3/ul (0.0-0.6); BAND NEUTROPHILS % (M) 4 % (0-4); BURR CELLS 2+ (0-0); GIANT THROMBO% (M) 3 % (0-0); LYMPHOCYTES #M 2.9 10^3/ul (0.8-2.9); LYMPHOCYTES % (M) 28 % (15-51); MONOCYTE #M 0.3 10^3/ul (0.3-0.9); MONOCYTES % (M) 3 % (0-11); PLATELET ESTIMATE NORMAL; POIKILOCYTOSIS 3+ (0-0); REACTIVE LYMPHOCYTES #M 0.7 10^3/ul (0.0-0.0); REACTIVE LYMPHOCYTES% (M) 7 % (0-0); SEG NEUT #M 6.1 10^3/ul (1.6-7.5); SEGMENTED NEUTROPHILS (M) % 58 % (39-77); SMUDGE%M 11 % (0-0)
[2019-01-28] MEDS: OCTREOTIDE 50 MCG INJ SC (20:51)
[2019-01-29] MEDS: LORAZEPAM 2 MG INJ IV (04:48)
[2019-01-29 05:56] LABS: ADD MAN DIFF? NO
[2019-01-29 06:03] LABS: WHITE BLOOD COUNT 11.4 10^3/ul (4.8-10.8)
[2019-01-29 06:03] LABS: BASOPHILS % 0.3 % (0.0-2.0); EOSINOPHILS # 0.1 10^3/ul (0.0-0.5); EOSINOPHILS % 0.8 % (0.0-7.0); HEMATOCRIT 37.9 % (42.0-52.0); HEMOGLOBIN 12.1 g/dl (14.0-18.0); LYMPHOCYTES # 2.1 10^3/ul (0.8-2.9); LYMPHOCYTES % 18.1 % (15.0-51.0); MEAN CORPUSCULAR HEMOGLOBIN 29.4 pg (29.0-33.0); MEAN CORPUSCULAR HGB CONC 31.9 g/dl (32.0-37.0); MEAN PLATELET VOLUME 10.3 fl (7.4-10.4); MONOCYTE # 0.8 10^3/ul (0.3-0.9); MONOCYTES % 6.9 % (0.0-11.0); NEUTROPHILS % 69.7 % (39.0-77.0); PLATELET COUNT 401 10^3/UL (140-415); RED BLOOD COUNT 4.12 10^6/ul (4.70-6.10); RED CELL DISTRIBUTION WIDTH 19.1 % (11.5-14.5)
[2019-01-29 06:35] LABS: ANION GAP 4 (5-13); BLOOD UREA NITROGEN 16 mg/dl (7-20); CALCIUM 8.5 mg/dl (8.4-10.2); CARBON DIOXIDE 30 mmol/L (21-31); CHLORIDE 102 mmol/L (97-110); CREATININE 0.31 mg/dl (0.61-1.24); Estimated GFR > 60 mL/min (>60); GLUCOSE 89 mg/dl (70-220); MAGNESIUM 2.1 mg/dl (1.7-2.5); PHOSPHORUS 3.6 mg/dl (2.5-4.9); POTASSIUM 4.2 mmol/L (3.5-5.1); SODIUM 136 mmol/L (135-144)
[2019-01-29] MEDS: PANTOPRAZOLE 40 MG INJ IV (06:36)
[2019-01-29] MEDS: LEVALBUTEROL (NEB) 0.63 MG/3 ML AMP HHN ×3 (08:26→19:55)
[2019-01-29] MEDS: MIDODRINE 5 MG TAB PO ×3 (08:53→21:42)
[2019-01-29] MEDS: SENNA TAB PO ×2 (08:53→21:41)
[2019-01-29] MEDS: DOCUSATE SODIUM 100 MG CAP PO ×2 (08:53→21:41)
[2019-01-29] MEDS: BENZTROPINE 1 MG TAB PO ×2 (08:54→21:42)
[2019-01-29] MEDS: FOLIC ACID 1 MG TAB PO (08:54)
[2019-01-29] MEDS: QUETIAPINE 25 MG TAB PO ×2 (08:54→21:41)
[2019-01-29] MEDS: predniSONE 2.5 MG TAB PEG (08:54)
[2019-01-29] MEDS: ASCORBIC ACID 500 MG TAB PO (08:54)
[2019-01-29] MEDS: COLLAGENASE 5 GM (UD JAR) TOP (08:55)
[2019-01-29] MEDS: BALSAM PERU/CASTOR OIL 60 GM TUBE TOP ×3 (08:55→21:43)
[2019-01-29] MEDS: LACTOBACILLUS RHAMNOSUS CAP PO (08:55)
[2019-01-29] MEDS: MULTIVITAMINS THERAPEUTIC TAB PO (08:55)
[2019-01-29] MEDS: ENOXAPARIN 40 MG/0.4 ML SYG SC (09:09)
[2019-01-29 13:58] LABS: ADD UMIC NO; UR ASCORBIC ACID NEGATIVE (NEGATIVE); UR BILIRUBIN (Dip) NEGATIVE (NEGATIVE); UR BLOOD (Dip) NEGATIVE (NEGATIVE); UR CLARITY CLEAR (CLEAR); UR COLOR STRAW (YELLOW); UR GLUCOSE (Dip) NEGATIVE (NEGATIVE); UR KETONES (Dip) NEGATIVE (NEGATIVE); UR LEUKOCYTE ESTERASE (Dip) NEGATIVE Leu/ul (NEGATIVE); UR NITRITE (Dip) NEGATIVE (NEGATIVE); UR SPECIFIC GRAVITY (Dip) 1.004 (1.003-1.030); UR TOTAL PROTEIN (Dip) NEGATIVE (NEGATIVE); UR UROBILINOGEN (Dip) NEGATIVE (NEGATIVE)
[2019-01-29] MEDS: TRIMETHOPRIM/SULFAMETHOX (DS) TAB GTB (21:41)
[2019-01-29] MEDS: ALPRAZOLAM 0.5 MG TAB PO (21:52)
[2019-01-30] MEDS: OCTREOTIDE 50 MCG INJ SC (00:38)
[2019-01-30] MEDS: LORAZEPAM 2 MG INJ IV (00:46)
[2019-01-30 05:44] LABS: ADD MAN DIFF? NO
[2019-01-30 05:48] LABS: BASOPHILS % 0.3 % (0.0-2.0); EOSINOPHILS # 0.1 10^3/ul (0.0-0.5); EOSINOPHILS % 1.1 % (0.0-7.0); HEMATOCRIT 33.6 % (42.0-52.0); HEMOGLOBIN 10.9 g/dl (14.0-18.0); LYMPHOCYTES # 1.5 10^3/ul (0.8-2.9); LYMPHOCYTES % 20.9 % (15.0-51.0); MEAN CORPUSCULAR HEMOGLOBIN 29.5 pg (29.0-33.0); MEAN CORPUSCULAR HGB CONC 32.4 g/dl (32.0-37.0); MEAN CORPUSCULAR VOLUME 91.1 fl (82.0-101.0); MEAN PLATELET VOLUME 9.5 fl (7.4-10.4); MONOCYTE # 0.6 10^3/ul (0.3-0.9); MONOCYTES % 8.2 % (0.0-11.0); NEUTROPHIL # 4.7 10^3/ul (1.6-7.5); PLATELET COUNT 428 10^3/UL (140-415); RED BLOOD COUNT 3.69 10^6/ul (4.70-6.10); RED CELL DISTRIBUTION WIDTH 18.9 % (11.5-14.5)
[2019-01-30 05:48] LABS: WHITE BLOOD COUNT 7.2 10^3/ul (4.8-10.8)
[2019-01-30 06:08] LABS: ANION GAP 5 (5-13); BLOOD UREA NITROGEN 16 mg/dl (7-20); CALCIUM 8.5 mg/dl (8.4-10.2); CARBON DIOXIDE 29 mmol/L (21-31); CHLORIDE 102 mmol/L (97-110); CREATININE 0.35 mg/dl (0.61-1.24); Estimated GFR > 60 mL/min (>60); GLUCOSE 101 mg/dl (70-220); MAGNESIUM 2.1 mg/dl (1.7-2.5); PHOSPHORUS 3.6 mg/dl (2.5-4.9); POTASSIUM 4.4 mmol/L (3.5-5.1); SODIUM 136 mmol/L (135-144)
[2019-01-30] MEDS: PANTOPRAZOLE 40 MG INJ IV (06:19)
[2019-01-30] MEDS: LIDOCAINE 2% (SDV) 5 ML INJ (07:35)
[2019-01-30] MEDS: PROPOFOL 20 ML (07:35)
[2019-01-30] MEDS: LEVALBUTEROL (NEB) 0.63 MG/3 ML AMP HHN ×2 (08:19→14:23)
[2019-01-30] MEDS: ASCORBIC ACID 500 MG TAB PO (09:31)
[2019-01-30] MEDS: COLLAGENASE 5 GM (UD JAR) TOP (09:31)
[2019-01-30] MEDS: FOLIC ACID 1 MG TAB PO (09:33)
[2019-01-30] MEDS: DOCUSATE SODIUM 100 MG CAP PO (09:33)
[2019-01-30] MEDS: predniSONE 2.5 MG TAB PEG (09:33)
[2019-01-30] MEDS: TRIMETHOPRIM/SULFAMETHOX (DS) TAB GTB (09:33)
[2019-01-30] MEDS: MIDODRINE 5 MG TAB PO ×2 (09:33→13:45)
[2019-01-30] MEDS: SENNA TAB PO (09:34)
[2019-01-30] MEDS: LACTOBACILLUS RHAMNOSUS CAP PO (09:34)
[2019-01-30] MEDS: MULTIVITAMINS THERAPEUTIC TAB PO (09:34)
[2019-01-30] MEDS: BALSAM PERU/CASTOR OIL 60 GM TUBE TOP ×2 (09:34→09:35)
[2019-01-30] MEDS: BENZTROPINE 1 MG TAB PO (09:34)
[2019-01-30] MEDS: QUETIAPINE 25 MG TAB PO (09:34)
[2019-01-30] MEDS: ENOXAPARIN 40 MG/0.4 ML SYG SC (10:12)
[2019-01-30] MEDS ORDERED: SOD CHLORIDE 0.9% 500 ML IV (16:30)
[2019-01-31] MEDS ORDERED: LANSOPRAZOLE 30 MG CAP GTB (06:00)
== END 2019-01-30 16:36 | DRG 871 ==
LOC: E/R 13:08 → 6WM 14:30
PROC: 0DH63UZ Insertion of Feeding Device into Stomach, Percutaneous Approach (ICD-10-PCS; principal; 2019-01-27 14:05)
DX: A41.9 Sepsis, unspecified organism (principal); J69.0 Pneumonitis due to inhalation of food and vomit; N39.0 Urinary tract infection, site not specified; G11.4 Hereditary spastic paraplegia; B96.4 Proteus (mirabilis) (morganii) as the cause of diseases classified elsewhere; D64.9 Anemia, unspecified; D13.7 Benign neoplasm of endocrine pancreas; E86.0 Dehydration; F39 Unspecified mood [affective] disorder; F03.90 Unspecified dementia, unspecified severity, without behavioral disturbance, psychotic disturbance, mood disturbance, and anxiety; H54.7 Unspecified visual loss; K21.9 Gastro-esophageal reflux disease without esophagitis; Q90.9 Down syndrome, unspecified; R13.10 Dysphagia, unspecified; R62.7 Adult failure to thrive; R63.3 Feeding difficulties; Z68.24 Body mass index [BMI] 24.0-24.9, adult; Z74.01 Bed confinement status
CPT/HCPCS: 36415; 36600; 71045; 80048; 80053; 80069; 80202; 81001; 81003; 82150; 82803; 82962; 83036; 83605; 83690; 83735; 84100; 84134; 84478; 84484; 85025; 85049; 85610; 85670; 85730; 87040-91; 87081; 87086; 92526; 92610; 93005; 94640; 94660; 94664; 96374; 96375; 97110; 97161; 97530; 99285-25